=== PATIENT | female | born 1970 | race Caucasian/White ===

== ENCOUNTER 2019-11-26 14:04 | Outpatient (CLI) | payer MEDICARE, SELFPAY ==
--- NOTE | ~2019-11-26 | MM_ITS ---
EXAMINATION: MM screening pinky BI w maite HISTORY: Screening mammogram, family history of breast cancer in her mother. TECHNIQUE: Craniocaudal and mediolateral oblique 3-D tomosynthesis images were obtained and synthetic 2-D images were generated. CAD analysis was submitted and interpreted. COMPARISON: 10/30/2018, 01/23/2017, 12/03/2015 BREAST PARENCHYMAL COMPOSITION: There are scattered areas of fibroglandular density. FINDINGS: There is no evidence of suspicious mass, calcification, or architectural distortion to sugg est malignancy in either breast. There has been no suspicious interval change. IMPRESSION: 1. No mammographic evidence of malignancy. 2. Recommend routine screening mammography in one year. BI-RADS Category 1: Negative Reviewed, dictated and finalized at location A.
== END 2019-11-26 14:05 | disposition home or self-care (01) ==
LOC: ANHIMG 14:08
PROVIDERS: PCP Family Medicine Adolescent Medicine; Visit Provider Obstetrics & Gynecology
DX: Z12.31 Encounter for screening mammogram for malignant neoplasm of breast (principal)
CPT/HCPCS: 77063; 77067

== ENCOUNTER 2021-02-22 08:59 | Outpatient (CLI) | payer MEDICARE, SELFPAY ==
--- NOTE | ~2021-02-22 | MM_ITS ---
EXAMINATION: MM screening pinky BI w maite HISTORY: Screening TECHNIQUE: Craniocaudal and mediolateral oblique 3-D tomosynthesis images were obtained and synthetic 2-D images were generated. CAD analysis was submitted and interpreted. COMPARISON: Comparison to multiple prior studies sequentially, with oldest reviewed study dated 12/02. BREAST PARENCHYMAL COMPOSITION: There are scattered areas of fibroglandular density. FINDINGS: There is no evidence of suspicious mass, calcification, or architectural distortion to sugg est malignancy in either breast. There has been no suspicious interval change. IMPRESSION: 1. No mammographic evidence of malignancy. 2. Recommend routine screening mammography in one year. BI-RADS Category 1: Negative Reviewed, dictated and finalized at location A.
== END 2021-02-22 09:00 | disposition home or self-care (01) ==
LOC: ANHIMG 09:02
PROVIDERS: PCP Family Medicine Adolescent Medicine; Visit Provider Obstetrics & Gynecology
DX: Z12.31 Encounter for screening mammogram for malignant neoplasm of breast (principal)
CPT/HCPCS: 77063; 77067

== ENCOUNTER 2021-05-12 11:36 | Outpatient (CLI) | payer MEDICARE, SELFPAY ==
--- NOTE | ~2021-05-12 | XR_ITS ---
EXAMINATION: XR chest 2V EXAM DATE: 05/12/2021 12:23 INDICATION: Preoperative. TECHNIQUE: Frontal and lateral projections of the chest obtained and reviewed. There is no prior janelle dy for comparison. FINDINGS: The lungs are clear. There are no pleural effusions. The cardiomediastinal silhouette is within normal limits. There is no pneumothorax suspected. The bones and soft tissues are unremarkab le. IMPRESSION: No acute cardiopulmonary findings. Reviewed, dictated and finalized at location A. RY MAN
--- NOTE | 2021-05-12 11:30 | ECG_ITS ---
Measurements Intervals [place] Rate: 65 P: 71 [place]: 151 QRS: -9 QRSD: 88 T: 32 QT: 402 QTc: 420 Interpretive Statements SINUS RHYTHM INCOMPLETE RIGHT BUNDLE BRANCH BLOCK BASELINE ARTIFACT- I, II, V6 BORDERLINE ECG Electronically Signed On 05-12-2021 12:36:11 ANIMAL CONTROL LICENSING WORKER by Nick Tavares D.O.
[2021-05-12 12:23] LABS: Alanine Aminotransferase 33 U/L (4-35); Albumin Level 4.6 g/dL (3.5-5.1); Alkaline Phosphatase 72 U/L (38-126); Anion Gap 8 mmol/L (8-16); Aspartate Amino Transferase 29 U/L (14-36); Bilirubin,Total 0.7 mg/dL (0.2-1.3); Blood Urea Nitrogen 8 mg/dL (7-17); Calcium 9.3 mg/dL (8.4-10.2); Carbon Dioxide 28 mmol/L (22-30); Chloride 101 mmol/L (98-107); Estimated Glomerular Filt Rate > 60; Glucose 110 mg/dL (65-110); Potassium 4.3 mmol/L (3.4-5.0); Sodium 137 mmol/L (137-145)
[2021-05-12 12:39] LABS: Basophils Absolute Auto 0.1 K/mm3 (0.0-0.1); Basophils Percent Auto 0.5 % (0.2-1.2); Eosinophils Absolute Auto 0.2 K/mm3 (0-0.3); Hematocrit 39.5 % (37.0-47.0); Hemoglobin 13.7 g/dL (12.0-15.0); Immature Granulocyte Absolute 0.06 K/mm3 (0.00-0.031); Immature Granulocyte Percent A 0.6 % (0-0.5); Lymphocytes Absolute Auto 2.07 K/mm3 (0.9-3.2); Lymphocytes Percent Auto 22.2 % (18.3-44.2); Mean Corpuscular HGB Conc 34.7 g/dl (32-36); Mean Corpuscular Hemoglobin 31.4 pg (26-34); Mean Corpuscular Volume 90.4 fl (80-100); Mean Platelet Volume 10.3 fl (7.4-10.4); Monocytes Absolute Auto 0.5 K/mm3 (0.1-0.6); Monocytes Percent Auto 5.5 % (2.6-8.5); Neutrophils Absolute Auto 6.4 K/mm3 (1.3-6.7); Neutrophils Percent Auto 69.2 % (45.5-73.1); Platelet Count Result 294 k/mm3 (150-375); Red Blood Count 4.37 M/mm3 (4.2-5.4); White Blood Count 9.3 K/mm3 (4.5-10.0)
== END 2021-05-12 11:37 | disposition home or self-care (01) ==
LOC: ANHSURGERY 11:42
PROVIDERS: PCP Family Medicine Adolescent Medicine; Visit Provider Surgery
DX: Z01.818 Encounter for other preprocedural examination (principal); F17.210 Nicotine dependence, cigarettes, uncomplicated; K43.2 Incisional hernia without obstruction or gangrene; I45.10 Unspecified right bundle-branch block
CPT/HCPCS: 36415; 71046; 80053; 85025; 93005

== ENCOUNTER → 2021-05-13 00:58 | Outpatient (CLI) | payer MEDICARE, SELFPAY ==
[2021-05-13 20:42] LABS: SARS-CoV-2 RNA PCR Positive
== END ==
PROVIDERS: Anesthesiology; PCP Family Medicine Adolescent Medicine; Visit Provider Surgery
DX: Z01.812 Encounter for preprocedural laboratory examination (principal); U07.1 COVID-19
CPT/HCPCS: C9803; U0003; U0005

== ENCOUNTER 2021-07-05 00:09 | Day surgery (SDC) | payer MEDICARE, SELFPAY ==
[2021-05-09 15:54] VITALS: BMI 38.0
--- NOTE | 2021-05-09 16:20 | PC.NURSE ---
Addendum entered by Anisha Peoples RN 06/27/21 15:36: PT TO ARRIVE AT 1000 ON 07/05/21 FOR SURGERY AT 1200. ONE VISITOR ALLOWED IN WITH PT. NO COVID TEST NEEDED. Original Note: Report to the Outpatient Waiting Room, entrance under the green pavilion located off [facility], at time 11:30 on date 05/18/21. OR Time: 1:30. - You will be asked a series of questions to screen for COVID 19 for your protection. - A mask is required within the hospital. - No visitors are allowed at this time. Patient visitors will be guided where to wait when not with patient. Preoperative COVID Testing Requirements: No COVID Test needed if: (proof is required; if not received patient will have Rapid Test prior to entry) - Patient has received COVID Vaccine at least 14 days prior to procedure date or - Patient has positive COVID test result within last 90 days of surgery date. COVID Test needed if above criteria is not met If not COVID vaccinated a COVID test must be conducted within 72 hours of surgery and patient is asked to isolate self from time of testing until procedure. You will go to the [facility] for your COVID testing. The [facility] is located at the corner of [address] [facility]. COVID TEST 05/13 AT 9:45 You will only be called if COVID results are positive and your surgeon may reschedule your elective surgery date. Patients may have clear liquids (water, carbonated beverages, clear teas, apple juice) until 3 hours prior to surgery (10:30) with a maximum of 20 ounces. - No food from midnight until time of surgery Take the following medications with a SIP of water the morning of surgery: PAIN PILL (IF NEEDED) Medications to discontinue per physician: VITAMINS/SUPPLEMENTS Date to take last dose: 05/14/21 Please no make-up, nail nigerian, hairspray, perfume, deodorant, or body powder the day of surgery. No jewelry (including any body piercings) or valuables the day of surgery, leave them at home. Please take a shower or bath the night before, or the morning of, surgery with an antibacterial soap. Wear comfortable, loose fitting clothing. HIBICLENS SHOWER - Jewelry must be removed prior to entering the operating room. Rings and piercings that are not removed may be cut off. - The hospital will not accept responsibility for valuables. - Please leave all valuables, including medications, at home the day of surgery. If you are going home after surgery, a licensed delivery driver/supervisor must drive you home. - NO public transportation without another adult. - We recommend that an adult stay with you for 24 hours following discharge. - We also recommend that you do not drive, make important decision, drink alcoholic beverages, or take any drugs that were not prescribed by your health care provider for at least 24 hours after your discharge time. Follow any additional instructions given to you from your surgeon. Telephone instructions given to MARILEE ANNE and asked if any additional questions and then verbalized understanding. Patient advised to call surgeon office or pre surgery nurse liaison [phone] if any additional questions.
[2021-06-27 14:56] VITALS: BMI 38.0
[2021-07-05] VITALS (8 sets, daily range): BP systolic 110–140; BP diastolic 65–86; PULSE 61–86; RESP 16–21; TEMP 36.8–37.1; O2SAT 97–100
[2021-07-05] MEDS: ACETAMINOPHEN 500 MG TABLET 1000 MG PO (10:30)
[2021-07-05] MEDS: KETOROLAC 15 MG/ML VIAL (*BKC) IV PUSH (10:31)
[2021-07-05] MEDS: LACTATED RINGERS 1,000 ML 30 ML IV CONT ×3 (10:31→15:15)
--- NOTE | 2021-07-05 11:13 | P.PNAN_ITS ---
Anes - Initial Pre Proc Eval Procedure: Operation Date: 07/05/21 12:00 Proposed Procedures p Laparoscopic Ventral Incisional Hernia Repair with Mesh - Trent Roth MD Date/Time: 07/05/21 11:13 Surgeon: Trent Roth MD Pre Op Diagnosis: incisional hernia X2 Patient Data Age: 51 Gender: F Height: 1.68 m Weight: 111.3 kg Last Vital Signs Temp 98.2 F 07/05/21 10:09 Pulse 86 07/05/21 10:09 Resp 18 07/05/21 10:09 BP 140/86 07/05/21 10:09 Pulse Ox 98 07/05/21 10:09 Allergies Allergy/AdvReac Type Severity Reaction Status Date / Time latex Allergy Intermediate RASH Verified 06/28/21 10:31 propoxyphene AdvReac Mild Headache Verified 07/05/21 08:43 [From Darvocet-N] Home Medications Medication Instructions Recorded Confirmed Type acetaminophen-codeine 1 tablet PO BID PRN 05/09/21 07/05/21 History multivitamin 1 tablet PO DAILY 05/09/21 07/05/21 History tramadol 100 mg PO BID 05/09/21 07/05/21 History Patient hx anesthesia problems: none Family hx anesthesia problems: none Results Review: All pre-operative results and documents have been reviewed as part of the pre-operative evaluation. [facility] Past Medical History Medical History GERD without esophagitis History of bronchitis Normal colonoscopy w/o any polyps, by Dr. Hernandez 2016 Surgical History Surgical History History of 2007 History of cholecystectomy 2017 History of hysterectomy 2014 partial History of lumbar discectomy 2004 L5 History of tubal ligation 2011 Family History Family History Unknown Diabetes mellitus Cancer Cardiovascular disease Breast cancer Other Family history of cardiovascular disease Family history of malignant neoplasm Social History Social History (Updated 07/04/21 @ 11:55 by Trent Roth MD) Smoking packs per day: 1.5 Smoking cigarettes per day: 30.0 Years smoked: 20 Smoking pack-years: 30.00 Smoking status: Former smoker Tobacco type: cigarettes Smoking end date: 05/14/06 Alcohol intake: never Substance use type: marijuana Other substance usage details: EVERY COUPLE MONTHS WHEN PAIN SEVERE Living arrangements: with family Spiritual care concerns: No Anes - Eval Final PreProcedure Day of Procedure 07/05/21 11:13 Patient weight: morbidly obese Heart: regular rate and rhythm Lungs: clear to auscultation Airway: Mallampati scale class III Neurological: alert and oriented Last oral intake: >/= 8 hours ASA classification: III Emergent: no Anesthetic plan: proceed Anesthesia type and monitoring: general ETT and standard monitoring Results Review: All pre-operative results and documents have been reviewed as part of the pre-operative evaluation. Informed Consent: The patient's anesthetic plan and its attendant risks and benefits were discussed with the patient/family/POA. Questions were solicited and answers provided to the satisfaction of the patient/family/POA.
--- NOTE | 2021-07-05 11:40 | WPDHPUPDATE1 ---
History and Physical Update Update Date/Time: 07/05/21 11:40 History and Physical has been reviewed, including an updated exam of the patient. There are NO changes in the patient's condition. Risks, benefits, and alternatives have been discussed and questions answered. Patient agrees to proceed with procedure.
[2021-07-05] MEDS: ceFAZolin 2 GM/D5W 50 ML 2 GM/50 ML BAG IVPB (12:02)
[2021-07-05] MEDS: BUPIVACAINE/EPINEPHRINE 0.5% 10 ML VIAL 30 ML INFILTRATE (12:41)
--- NOTE | 2021-07-05 14:54 | W.PM.PROC2 ---
Procedure Note - Detailed Date of Procedure 07/05/21 Pre-op Diagnosis Ventral incisional hernia X2 (umbilicus and epigastric) Post-op Diagnosis same Procedure Performed Laparoscopic ventral incisional hernia repair with mesh (15 x 10 cm Ventralight mesh). Surgeon Trent Roth MD Investigative Assistant Jerri CHAVEZ, OR assistant infant teacher Anesthesia general Indications Patient has been having increasing bulge in increasing pain in a ventral incisional hernia slightly above into the right of her umbilicus for the last year. Findings Omentum incarcerated within a ventral incisional hernia just above head to the right of the umbilicus. Description of Procedure DESCRIPTION OF PROCEDURE: The patient was placed in the supine position on the operative table and after induction of adequate general endotracheal anesthesia by Danny Anesthesia, the entire abdomen was prepped and draped in usual sterile fashion and the head placed slightly up. An Ioban drape was used to prevent contact of the mesh with the skin during this clean case. Following this, local anesthetic was placed and a spot selected about two fingerbreadths below the costal margin on the left and a small incision made after instilling local anesthetic using 0.25% Marcaine with epinephrine. Following this, a Veress needle technique using the water drop test was completed. Using 2 towel clips on the skin, I carefully elevated the skin and then passed the Veress needle into the abdomen and we could see that the saline dropped through the Veress needle easily. CO2 gas was connected and the abdomen was insufflated to 15 mm Hg pressure. Following this, the 0 degree 5 mm laparoscope was placed inside a 5 mm trocar, which was carefully twisted into the abdomen without difficulty. Then seeing a open pneumoperitoneum as we entered the trocar was removed, the sleeve confirmed to be nicely within the abdomen. We carefully inspected the anterior abdomen. Careful inspection of the abdomen revealed Omentum adhesed to the edges of a defect which was situated slightly above and to the right of the umbilicus that was actually difficult to see initiallybecause of the adhesions. However, after placing a 12 mm port in the left lower quadrant under direct vision with the laparoscope, we could see up into a 5.5 cm diameter defect that had been measured then with an instrument with a known cm marker. There was no incarceration of anything other than omentum. I could completely reduce the hernia sac and the overlying skin by pushing down on the area externally. All these adhesions were then taken down with sharp dissection using Bovie cautery on the laparoscopic sicssors and [place] grasper. There was some fat along the midline extending up to the falciform ligament. I also took this down and removed that preperitoneal fat . We had a little bleeding from this, and lost about 10 mL of blood. This was nicely cauterized and then moved out of the way. This was pre-peritoneal fat and it was removed from the abdomen and passed off the field but not sent as specimen. Following this, we carefully planned by measuring the defect. It was essentially a 5 .5 cm circular defect. Our mesh, a 15 X 10 cm oval piece of Ventra-light mesh (the Echo II system) was chosen, so that we would have 2.5 cm of overlap in the [id number] direction and a 5 cm in the top to bottom direction over the epigastric and small umbilical defect. The umbilical defect that had been noted on her CT scan was noted to be at the very lower end of the fascial defect of the epigastric incisional hernia. It was more a general weakness of the tissues then an obvious fascial defect. Because of the size of this defect and the size the patient I decided that 2 trans-fascial sutures, one on either side about even with the center of the defect would help hold this in place. Therefore an 0 Vicryl suture was selected and brought through the anterior surface of the mesh and left l
[2021-07-05] MEDS: ONDANSETRON INJ 4 MG/2 ML VIAL IV PUSH (15:02)
[2021-07-05] MEDS: diphenhydrAMINE HCl INJ 50 MG/ML VIAL 25 MG IV PUSH (15:25)
[2021-07-05] MEDS: fentaNYL CITRATE INJ (*CRX) 100 MCG/2 ML VIAL 25 MCG IV PUSH ×3 (15:37→15:57)
[2021-07-05] MEDS: oxyCODONE HCL (*CRX) 5 MG TAB IR PO (17:24)
== END 2021-07-05 17:45 | disposition home or self-care (01) ==
PROVIDERS: PCP Family Medicine Adolescent Medicine; Visit Provider Surgery
PROC: (CPT 49655; principal; 2021-07-05 12:00)
DX: K43.0 Incisional hernia with obstruction, without gangrene (principal); K21.9 Gastro-esophageal reflux disease without esophagitis; Z87.891 Personal history of nicotine dependence; E66.01 Morbid (severe) obesity due to excess calories; Z68.39 Body mass index [BMI] 39.0-39.9, adult
CPT/HCPCS: 49655; A9270; C1781; J0360; J0690; J1100; J1170; J1200; J1885; J2250; J2405; J2704; J2710; J3010; J7120

== ENCOUNTER 2022-03-27 15:03 | Outpatient (CLI) | payer MEDICARE, SELFPAY ==
--- NOTE | ~2022-03-27 | MM_ITS ---
EXAMINATION: MM screening pinky BI w maite HISTORY: Screening TECHNIQUE: Craniocaudal and mediolateral oblique 3-D tomosynthesis images were obtained and synthetic 2-D images were generated. CAD analysis was submitted and interpreted. COMPARISON: Comparison to multiple prior studies sequentially, with oldest reviewed study dated 12/02. BREAST PARENCHYMAL COMPOSITION: There are scattered areas of fibroglandular density. FINDINGS: There is no evidence of suspicious mass, calcification, or architectural distortion to sugg est malignancy in either breast. There has been no suspicious interval change. IMPRESSION: 1. No mammographic evidence of malignancy. 2. Recommend routine screening mammography in one year. BI-RADS Category 1: Negative Reviewed, dictated and finalized at location A. SCHOOL DIRECTOR
== END 2022-03-27 15:04 | disposition home or self-care (01) ==
LOC: ANHIMG 15:04
PROVIDERS: PCP Family Medicine Adolescent Medicine; Visit Provider Obstetrics & Gynecology
DX: Z12.31 Encounter for screening mammogram for malignant neoplasm of breast (principal)
CPT/HCPCS: 77063; 77067

== ENCOUNTER 2023-03-12 07:00 | Outpatient (CLI) | payer MEDICARE, SELFPAY ==
--- NOTE | ~2023-03-12 | CT_ITS ---
EXAMINATION: CTA brain carotid DATE: 03/12/2023 08:21 INDICATION: Dizziness and giddiness. TECHNIQUE: Computed tomographic angiography (CTA) of the head was performed without and with 100 mL O mnipaque-350 intravenous contrast. CTA of the neck was performed with intravenous contrast. Automated exposure control and iterative reconstruction technique were employed. The dose-length product was 1 738.98 mGy-cm. Maximum intensity projection and volume rendered 3D-reconstructions were created by mesha perera technologist on a separate workstation. COMPARISON: Brain MRI 03/12/2023 FINDINGS: HEAD CTA: There is no intracranial hemorrhage, acute infarction, or abnormal intracranial mass lesion . The ventricles are normal in size. There is mild mucosal thickening in the ethmoid sinuses. The mas toid air cells are normal. The orbits are normal. Right vertebral artery is dominant. There is no sig nificant stenosis of basilar artery or the posterior cerebral arteries. There is no significant steno sis of the intracranial internal carotid arteries or anterior or middle cerebral arteries. Anterior c ommunicating artery is normal. The posterior communicating arteries are normal. There is no aneurysm. NECK CTA: There are no pathologically enlarged lymph nodes. There is no significant stenosis of the v ertebral arteries. There is no visible plaque in the proximal internal carotid arteries. There is 0% stenosis of the proximal right internal carotid artery relative to normal distal artery lumen diamete r (NASCET criteria). There is 0% stenosis of the proximal left internal carotid artery relative to no rmal distal artery lumen diameter. There is severe cervical spondylosis. IMPRESSION: 1. Normal brain. No aneurysm or significant intracranial arterial stenosis. 2. 0% stenosis of the proximal internal carotid arteries relative to normal distal artery lumen diame ters (NASCET criteria). Reviewed, dictated and finalized at location E. IMPRESSION: 1. Normal brain. No aneurysm or significant intracranial arterial stenosis. 2. 0% stenosis of the proximal internal carotid arteries relative to normal dis syd artery lumen diameters (NASCET criteria).
--- NOTE | ~2023-03-12 | MR_ITS ---
EXAMINATION: MR brain/brain stem wo/w con DATE: 03/12/2023 08:24 INDICATION: Dystonia, unspecified. Dizziness. TECHNIQUE: Magnetic resonance imaging (MRI) of the brain and brainstem was performed without and with 20 mL MultiHance intravenous contrast. COMPARISON: Head CT 03/12/2023 FINDINGS: There is no intracranial hemorrhage, acute infarction, or abnormal intracranial mass lesion . The ventricles are normal in size. The paranasal sinuses are clear. The orbits are normal. The mast oid air cells are normal. IMPRESSION: 1. Normal brain. Reviewed, dictated and finalized at location E. IMPRESSION: 1. Normal brain.
== END 2023-03-12 07:01 | disposition home or self-care (01) ==
PROVIDERS: PCP Family Medicine Adolescent Medicine; Visit Provider Student in an Organized Health Care Education/Training Program
DX: R42 Dizziness and giddiness (principal); G24.9 Dystonia, unspecified
CPT/HCPCS: 70496; 70498; 70553; A9577; Q9967

== ENCOUNTER 2023-05-09 14:08 | Outpatient (CLI) | payer MEDICARE, SELFPAY ==
--- NOTE | ~2023-05-09 | MM_ITS ---
EXAMINATION: MM screening pinky BI w maite HISTORY: Screening mammogram TECHNIQUE: Craniocaudal and mediolateral oblique 3-D tomosynthesis images were obtained and synthetic 2-D images were generated. CAD analysis was submitted and interpreted. COMPARISON: 03/27/2022, 03/02/2021, 11/26/2019 bilateral screening mammogram examinations BREAST PARENCHYMAL COMPOSITION: There are scattered areas of fibroglandular density. FINDINGS: Biopsy marker on the left; history of prior benign left breast biopsy. There is no evidence of suspicious mass, calcification, or architectural distortion to suggest malignancy in either breas t. There has been no suspicious interval change. IMPRESSION: 1. No mammographic evidence of malignancy. 2. Recommend routine screening mammography in one year. BI-RADS Category 1: Negative Reviewed, dictated and finalized at location A. ERIZING RANGE FEEDER
== END 2023-05-09 14:09 | disposition home or self-care (01) ==
LOC: ANHIMG 14:10
PROVIDERS: PCP Family Medicine Adolescent Medicine; Visit Provider Obstetrics & Gynecology
DX: Z12.31 Encounter for screening mammogram for malignant neoplasm of breast (principal)
CPT/HCPCS: 77063; 77067

== ENCOUNTER 2024-03-21 10:13 | Outpatient (CLI) | payer MEDICARE, SELFPAY ==
--- NOTE | 2024-04-12 12:54 | P.SLEEP_ITS ---
Sleep Study Date of Study: 03/21/24 Ordering Provider: Jg Parikh MD Interpreting Physician: Kylie Hernandez MD Sleep Study Type: CPAP Titration Height: 1.68 m Weight: 122.47 kg Body Mass Index: 43.5 Neck Circumference (inches): 17.25 [place]: 8 Reason for Sleep Study Known severe obstructive sleep apnea for 14 years, now on CPAP 8 cm. 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 * 09/10/2022; home sleep test through [facility], apnea- hypopnea index 1.6, 720 18.6% of the time was spent in REM, lowest saturation 89% no Ld-Melchor respirations * 03/22/2010; BMI was 38.4; split night study, Danny; severe JESSICA, AHI 30.4 with heavy snoring, desaturation to 84%, prolonged sleep latency, optimal pressure 8 cm CPAP, REM occurred during the titration. Sleep History Elvira Rascon is a 54-year-old female with constantly feeling fatigued and difficulty sleeping at night. She has chronic back pain. She wakes at times during the night feeling paralyzed and unable to move. She has been on CPAP for 14 years, began having nightly sleep paralysis in July of 2021 after a major surgery. Her TSH was elevated in November of this year and she started on replacement therapy. This has not helped her fatigue. She was treated with clonazepam 0.5 mg to help with sleep but this was not beneficial. This medication cause her to feel dizzy and lightheaded. She had a 3 day video EEG performed at [facility] that did not show seizures. She has seen an epilepsy specialist. All of the following questions are answered with her using CPAP. She rarely awakens at night feeling short of breath. She rarely awakens at night with heartburn, belching or coughing. She rarely snores, rarely snores loudly enough that others complain. She frequently has difficulty sleeping with a cold. She rarely gasp for breath at night. She rarely has breathing problems at night observed by others. She rarely sweats at night, rarely notices her heart pounding or beating irregularly night. She constantly falls asleep during the day. She rarely falls asleep involuntarily. She does not fall asleep while driving because she does not drive while she is tired. She rarely has loss of muscle tone with strong emotion. She frequently has daytime difficulties due to excessive sleepiness. She constantly feels paralyzed on waking or falling asleep. She constantly has vivid dreamlike scenes upon awakening or falling asleep. She rarely feels afraid to go to sleep. She frequently has nightmares. She frequently remembers her dreams. She constantly has racing thoughts. She rarely feels sad, depressed or anxious. She frequently has muscular tension and frequently notices parts of her body jerking. She occasionally kicks at night. She occasionally has crawling and aching feelings in her legs. She occasionally has it leg pain during the night. She always awakens with morning jaw pain, always grinds her teeth at night. She constantly is bothered by pain during the day and constantly awakens with pain during the night. She constantly wakes up feeling stiff in the morning with sore achy muscles and pain in the neck and spine. She has fatigue, memory problems, concentration difficulties. It is difficult for her to make plans not knowing how functional she will be when the time rolls around. Her normal bedtime appears to be between 2:00 a.m. and 6:00 a.m.. It takes her 5 minutes to fall asleep. She wakes every 2-4 hours during the night for different reasons, go to the bathroom, walk around and stretch, take medications if she awakens in the morning and then go back to bed for few hours. She tries to stay awake more during the day to spend time with her family. Her sleep is often disturbed by pain. She takes naps in the afternoon or evening. She is not refreshed after a 10-15 minute nap. She is usually drowsy for 3 hours after waking. She feels better in the late afternoon after 2 sleep episodes compared to other times of day. Habits: Tobacco: Quit 17 years ago Caffeine: drinks a pot of coffee during the day Alcohol: none Recreational substances: small amount CBD or THC gummy at bedtime over the last few months, helps PMFSH Past Medical History Medical History (Updated 04/14/24 @ 10:40 by Kylie Hernandez MD) COVID-19 GERD without esophagitis History of bronchitis Incisional hernia Normal colonoscopy w/o any polyps, by Dr. Hernandez 2017 Obstructive sleep apnea (adult) (pediatric) Surgical History Surgical History History of (2006) 2006 History of cholecystectomy (2017) 2017 History of hysterectomy (2013) 2013 total with BSO History of incisional hernia repair (06/2021) LAP VENTRAL INCISIONAL HERNIA REPAIR W MESH 07/05/21 History of lumbar discectomy (2003) 2003 L5 History of tubal ligation (2010) 2010 Family History Family History Unknown Diabetes mellitus Cancer Cardiovascular disease Breast cancer Other Family history of cardiovascular disease Family history of malignant neoplasm Social History Social History Smoking packs per day: 1.5 Smoking cigarettes per day: 30.0 Years smoked: 20 Smoking pack-years: 30.00 Smoking status: Former smoker Tobacco type: cigarettes Smoking end date: 05/14/06 Alcohol intake: never Substance use: current Substance use type: marijuana Other substance usage details: EVERY COUPLE MONTHS WHEN PAIN SEVERE Lack of Transportation: No Lack of Food: Never True Current Housing: I Have Housing Concerned About Future Housing: No Difficulty Paying Gas/Electric Bills: No Difficulty Paying for Meds: No Currently Unemployed: No Education: Associate Degree Difficulty w/ Childcare or Family Care: No Living arrangements: with family Occupation/Education: unemployed Spiritual care concerns: No Medications Home Medications Medication Instructions Recorded Confirmed Type multivitamin 1 tablet PO DAILY 05/09/21 01/29/24 History ibuprofen 200 mg capsule 200 mg PO Q6H PRN 11/23/22 01/29/24 History levothyroxine 100 mcg tablet 100 mcg PO DAILY #90 tabs 11/29/23 01/29/24 Rx baclofen 10 mg tablet 10 mg PO QHS PRN muscle spasm #30 01/15/24 01/29/24 Rx tabs tramadol 50 mg tablet 100 mg PO QID PRN pain #600 tabs 01/15/24 01/29/24 Rx acetaminophen 300 mg-codeine 30 mg 1 tablet PO BID PRN pain #60 tabs 03/31/24 Rx tablet Sleep Procedure A full CPAP polysomnogram using the [employer] multi-channel system recorded the standard physiologic parameters including EEG, EOG, submentalis EMG, anterior tibialis EMG, EKG, body position, nasal and oral airflow using n violeta pressure sensor and thermistor. Respiratory parameters of chest and abdominal movements were recorded with Respiratory Inductance Plethysmography belts. Oxygen saturation was recorded by pulse oximetry. Video monitoring was also performed. Sleep stages, periodic limb movements, and EEG arousals were scored in 30 second epochs according to the criteria of the AASM Scoring Manual. The Apnea-Hypopnea Index was calculated using CMS guidelines for definition of hypopnea while scoring respiratory events. The patient did not take a sleep aid at the beginning of this study. A REM behavior disorder montage was used with extended leads on the arms and legs for concerns regarding her unusual sleep complaints. The patient was started on CPAP using her own [employer] Standard 407 nasal mask from home, initial pressure was 5 cm. Patient did not sleep at this pressure. CPAP was increased at 8 cm, then 10 cm. She had occasional limb movements. She slept in the supine position then turned to left lateral position. Sleep was fragmented. She had no REM during the study. Sleep Architecture The total recording time was 381.3 minutes. The total sleep time was 244.5 minutes. Sleep latency was 40.2 minutes. She had no REM. Sleep efficiency was 64.1%. The patient had 41 awakenings for an awakening index of 10.1. Wake after Sleep Onset time was 97.0 minutes. The patient spent 34.0 minutes, 13.9% of total sleep time in Stage N1. The patient spent 192.0 minutes, 78.5% in Stage N2. The patient spent 18.5 minutes, 7.6% in Stage N3. The patient spent no time in Stage REM. Respiratory Analysis The patient had no hypopneas, obstructive apneas, mixed apneas, or central apneas for an overall Apnea Hypopnea Index of 0 events per hour. The REM Apnea Hypopnea Index was 0. The NREM Apnea Hypopnea Index was 0. The patient had a Central Apnea Hypopnea Index of 0. There were 2 Respiratory Effort Related Arousals resulting in a RERA index of 0.5 events per hour. The Respiratory Disturbance Index is 0.5 events per hour. There was no evidence of Ld-Melchor Respirations. Arousals There were 83 total arousals for an arousal index of 20.4. There were 72 spontaneous arousals for an index of 17.7. There were 1 arousals due to respiratory events for an index of 0.2. There were 2 arousals due to periodic limb movements for an index of 0.5. There were 10 arousals due to isolated limb movements for an index of 2.5. Periodic Limb Movements The patient had 67 isolated limb movements with an index of 16.4. The patient had 37 periodic limb movements with index of 9.1. Patient had a total of 104 limb movements with a total limb movement index of 25.5. Oximetry Data The patient had an average oxygen saturation of 92.4% in sleep with a minimum oxygen saturation of 91% and a maximum oxygen saturation of 95%. The patient had 2 oxygen desaturations that were 4% or greater resulting in an Oxygen Desaturation Index of 0.5. The patient spent no time with an oxygen saturation below 88%. Snoring Profile Snoring was not present during the titration. Cardiac Profile The EKG showed normal sinus rhythm. The patient had an average pulse rate of 61.9 bpm with a minimum pulse rate of 53 bpm and a maximum pulse rate of 71 bpm. No arrhythmias noted. EEG Profile EEG was unremarkable, no evidence of seizures. Assessment and Plan Assessment and Plan (1) Obstructive sleep apnea (adult) (pediatric): Code(s): G47.33 - Obstructive sleep apnea (adult) (pediatric) Status: Acute Assessment and Plan: This patient has known history of severe obstructive sleep apnea dating back at least to 2009, treated with CPAP 8 cm. On March 21, 2024 she had a full night CPAP titration, was trialed on pressure CPAP 5 without having sleep, CPAP 8 and CPAP 10. She had no events on any of these pressures. Sleep was fragmented during the night. Sleep efficiency was 73% on CPAP 8 cm and 60% on CPAP 10 cm. She uses CPAP 8 cm currently. The titration protocol was followed, however the titration was suboptimal. This patient needs a higher pressure to allow her to get into REM sleep. Her sleep paralysis is due to sleep deprivation on CPAP 8 cm. I recommend that she is treated with CPAP 12 cm empirically with an appropriate mask. She used her own [employer] Standard 407 nasal nasal mask during this study. She needs to follow up with Sleep Medicine for adjustment of the pressure using compliance data. If the patient used PAP leading up to the night of this study, the severity may have been underappreciated. BMI is 43.6. Weight management is advised. Clinical data suggests that weight loss of 10% can reduce the severity of respiratory events and snoring and improve AHI by as much as 25%, and a lower BMI can help erdcue daytime sleepiness independent of sleep apnea. . (2) Inadequate sleep hygiene: Code(s): Z72.821 - Inadequate sleep hygiene Status: Acute Assessment and Plan: I recommend sleep hygiene measures which will help her improve sleep quality. She is not keeping regular hours, she wakes at night, naps often in the day, and drinks excessive caffeine. Recommendations to improve sleep quality include: ?Practice a bedtime routine and keep the same sleep schedule including bedtime and wake up time, even on the weekends. Consistency makes it much easier to fall asleep and wake easily. ?If you have trouble sleeping at night, avoid naps, especially in the late afternoon. However, short naps lasting approximately 20 minutes can help alleviate daytime fatigue, sleepiness, and even provide cognitive benefit. Naps longer than 30 minutes can cause sleep inertia, a period of reduced alertness and cognitive performance after waking. ?Exercise daily. ?Maintain a sleep environment conducive to sleep. The bedroom should be comfortably cool. In population studies, nocturnal environmental light and noise significantly impact sleep quality and quantity. Use of blackout curtains, ear plugs, or sound machines may help promote an optimal sleep environment for individuals with sleep disruptions due to environmental stimuli. ?Sleep on a comfortable mattress and pillows. ?Regular bright light exposure in the mornings may help to maximize alertness and maintain a regular circadian rhythm. Studies in extreme latitudes where sunlight is minimal in the winter have found that an hour of exposure to white light in the morning helped subjects go to sleep earlier and wake earlier. Exposure to blue light in the morning may have more robust effects on the stability of the circadian rhythm and has been shown to improve daytime fatigue and sleepiness. ?Avoid cigarettes, caffeine, and heavy meals in the evening. While alcohol use does seem to reduce the time it takes to fall asleep, studies have reported that evening alcohol intake can cause more waking time or light sleep in the second half of the night and reduce self-reported sleep quality. Evening nicotine is associated with lower sleep efficiency and more awake time during the night. ?Wind down with quiet activities that may promote sleep, such as reading with a dim light. Avoid use of electronics at least 30 minutes before habitual bedtime and in the middle of the night if nocturnal awakenings occur. The blue light emitted from computer screens and hand-held devices can suppress natural melatonin production, resulting in difficulty falling asleep; however, the exact duration of use and intensity of lighting that cause this effect are variable in the literature. ?If you cannot sleep, do not look at a clock. Go into another room and do something relaxing until you feel drowsy enough to fall asleep again. Then return to bed. Data The data obtained during this sleep study is adequate for interpretation. Certification This sleep study has been reviewed by a board certified sleep medicine physician.
[2024-04-14 10:51] VITALS: BMI 43.5
== END 2024-03-22 06:33 | disposition home or self-care (01) ==
LOC: ANHCSM 10:19
PROVIDERS: PCP Family Medicine Adolescent Medicine; Visit Provider Family Medicine Adolescent Medicine
DX: G47.33 Obstructive sleep apnea (adult) (pediatric) (principal); E66.01 Morbid (severe) obesity due to excess calories; G24.9 Dystonia, unspecified; Z72.821 Inadequate sleep hygiene
CPT/HCPCS: 95811

== ENCOUNTER 2024-11-11 08:09 | Outpatient (CLI) | payer MEDICARE, SELFPAY ==
--- NOTE | ~2024-11-11 | MM_ITS ---
EXAMINATION: MM screening pinky BI w maite HISTORY: Screening mammogram, family history of breast cancer in her mother. TECHNIQUE: Craniocaudal and mediolateral oblique 3-D tomosynthesis images were obtained and synthetic 2-D images were generated. CAD analysis was submitted and interpreted. COMPARISON: 05/09/2023, 03/27/2022, 02/22/2021 BREAST PARENCHYMAL COMPOSITION:Not Dense. There are scattered areas of fibroglandular density. FINDINGS: No suspicious mass, calcification, or architectural distortion are identified in either joya ast to suggest malignancy. There has been no suspicious interval change. IMPRESSION: No mammographic evidence of malignancy. Recommend routine screening mammography in one year. BI-RADS Category 1: Negative Reviewed, dictated and finalized at location .
--- OUTSIDE RECORDS SUMMARY | 2024-11-11 08:13 | XMS_ITS | Clinical Summary ---
Author Organization [facility] [employer] Address [address] [place] [address] Care Team Providers Care Sitecore Developer Name Role Phone Unavailable Primary Care Provider Unavailabl e Source Comments [facility] [employer],non-owned Affiliates and Associated Physician Practices is amultiple site organization consisting of ambulatory clinics and hospital sitesin [place], [place], [place] and [place]. This disclosure is being madepursuant to the Care Everywhere program and may not contain all information available regarding this patient. Last updated 18.[facility] [employer] Allergies Active Allergy Reactions Criticality Noted Date Comments Latex Rash Medium 06/21/2023 Medications * Be aware that medications may not be up to date on this document. Alwaysverify current medications with the patient. levothyroxine (Synthroid) 100 MCG tablet Take 1 (one) tablet by mouth once daily 4 Active traMADol (Ultram) 50 MG tablet Take 2 (two) tablets by mouth 4 times daily as needed for Pain For pain. 4 Active acetaminophen-c odeine (Tylenol #3) 300-30 MG tablet Take 1 (one) tablet by mouth 2 times daily as needed for Pain For pain. 4 Active ibuprofen (Motrin) 200 MG tablet Take 1 (one) tablet by mouth every 6 hours as needed for Pain Active phenylephrine (Gt-Synephrine ) 1 % nasal spray [place] 1 (one) spray into each nostril every 4 hours as needed for Nasal Congestion Active clonazePAM (KlonoPIN) 0.5 MG tablet Take 1 (one) tablet by mouth at bedtime 90 tablet 4 Active clonazePAM (KlonoPIN) 0.5 MG tablet TAKE ONE TABLET BY MOUTH EVERY NIGHT AT BEDTIME 90 tablet 4 Active Active Problems Problem Noted Date Diagnosed Date Seizures 12/07/2023 Social History Tobacco Use Types Packs/Day Years Used Date Smoking Tobacco: Former Cigarettes Q uit: 07/12/2006 Smokeless Tobacco: Never Tobacco Cessation:Counseling Given: Not Answered AUDIT-C Answer Date Recorded Q1: How often do you have a drink containing alcohol? Never 12/10/2023 Q2: How many drinks containi ng alcohol do you have on a typical day when you are drinking? Patient does not drink Q3: How often do you have si x or more drinks on one occasion? Never 12/10/2023 Overall Financial Resource Strain (CARDIA) Answe r Date Recorded How hard is it for you to pa y for the very basics like food, housing, medical care, and heating? Not very hard 12/10/2023 [facility] - Occupational Stress Questionnaire Answer Date Recorded Do you feel stress - tense, restless, nervous, or anxious, or unable to sleep at night because your mind is troubled all the time - these days? To some extent 12/10/2023 Hunger Vital Sign Answer Date Recorded Within the past 12 months, y ou worried that your food would run out before you got the money to buy more. Never true 12/10/19 24 Within the past 12 months, t he food you bought just didn't last and you didn't have money to get more. Never true 12/10/2023 PRAPARE - Transportation Answer Date Re corded In the past 12 months, has l ack of transportation kept you from medical appointments or from getting medications? No 11/12 In the past 12 months, has l ack of transportation kept you from meetings, work, or from getting things needed for daily living? No 12/10/2023 Housing Stability Vital Sign Answer Robbi e Recorded In the last 12 months, was t here a time when you were not able to pay the mortgage or rent on time? No 12/10/2023 In the last 12 months, how many places have you lived? 1 12/10/2023 In the last 12 months, was t here a time when you did not have a steady place to sleep or slept in a assisted (including now)? No 12/10/2023 Comments Unknown Sex and Gender Information Value Date Recorded Sex Assigned at Not on file Legal Sex Female 5:57 AM [employer] Gender Identity Not on file Sexual Orientation Not on file Last Filed Vital Signs Vital Sign Reading Time Taken Comments Blood Pressure 117/71 12/12/2023 6:45 AM CDT Pulse 64 12/12/2023 6:45 AM CDT Temperature 36.6 C (97.9 F) 12/12/2023 6:45 AM CDT Respiratory Rate 16 12/12/2023 6:45 AM CDT Oxygen Saturation 98% 12/12/2023 6:45 AM CDT Inhaled Oxygen Concentration - - Weight 115.7 kg (255 lb) 12/10/2023 1:01 PM CDT Height 167.6 cm (5' 6) 12/10/2023 1:01 PM CDT Body Mass Index 41.16 12/10/2023 1:01 PM CDT Plan of Treatment Health Maintenance Due Date Last Done Comments COLOGUARD (AGES 45-75) - COL ON CA SCREENING 1970 COLON MONITORING 1970 COLONOSCOPY - COLON CA SCREENING 1970 CT COLONOGRAPHY - COLON CA SCREENING 1970 Colorectal Cancer Screening 1970 FIT - COLON CA SCREENING 1970 FLEX SIG - COLON CA SCREENING 1970 LIPID TESTING 1970 MAMMOGRAM 1970 MEDICARE AWV 12 MONTHS 1970 HIV SCREENING 1985 HEPATITIS C SCREENING 01/10/1988 DTAP/TDAP/TD VACCINES (1 - Tdap) 1989 HEPATITIS B VACCINE (1 of 3 - 19+ 3-dose series) 1989 PAP SMEAR 1991 PNEUMOCOCCAL VACCINE 50+ (1 of 1 - PCV) 01/15/2020 ZOSTER VACCINE (1 of 2) 01/15/2020 COVID-19 VACCINE ( - 2023-2 5 season) 2024 DEPRESSION SCREENING 05/14/2024 INFLUENZA VACCINE (Season Ended) 2025 HIB VACCINE Aged Out No longer eligi ble based on patient's age to complete this topic HPV VACCINE Aged Out No longer eligi ble based on patient's age to complete this topic MENINGOCOCCAL (Group B) VACC INE SHARED DECISION-MAKING Aged Out No longer eligibl e based on patient's age to complete this topic MENINGOCOCCAL GROUPS A/C/Y/W VACCINE Aged Out No longer eligible b ased on patient's age to complete this topic Insurance MEDICARE Advance Directives * Full Code (Latest Code Status on File) Date Activated Date Inactivated Comments 12/10/2023 12:09 PM 12/12/2023 6:17 PM
== END 2024-11-11 08:10 | disposition home or self-care (01) ==
PROVIDERS: PCP Family Medicine Adolescent Medicine; Visit Provider Family Medicine Adolescent Medicine
DX: Z12.31 Encounter for screening mammogram for malignant neoplasm of breast (principal)
CPT/HCPCS: 77063; 77067